=== PATIENT | male | born 1950 | race Caucasian/White ===

== ENCOUNTER 2020-09-21 16:24 | Outpatient (REF) | payer MEDICARE, SELFPAY ==
--- NOTE | 2020-09-21 16:27 | CT_ITS ---
EXAMINATION: CT HEAD WITHOUT CONTRAST CLINICAL INFORMATION: Dysphonia. COMPARISON: Head CT dated 02/23/2018. TECHNIQUE: Contiguous axial imaging was performed from the skull base to vertex without intravenous administration of contrast. This CT examination was performed using dose optimization techniques as appropriate, variously including the following: *Automated exposure control *Adjustment of mA and/or kV according to patient size (this includes techniques or standardized protocols for targeted exams where dose is matched to indication/reason for exam; i.e. extremities or head) *Use of iterative reconstruction technique DLP: 679 mGy-cm FINDINGS: There is no evidence of acute intracranial hemorrhage or territorial infarction. No abnormal mass effect or midline shift is seen. Malcolm to white matter differentiation is well preserved. No extra-axial fluid collections are identified. The ventricles are normal in size. There is no abnormal attenuation within the brain parenchyma. The osseous structures and soft tissues are normal. The mastoid air cells and visualized portions of the paranasal sinuses are well aerated. CT/CT head/brain wo con IMPRESSION: No acute intracranial pathology.
== END 2020-09-21 16:25 | disposition home or self-care (01) ==
LOC: HO.CT 16:24
PROVIDERS: PCP Internal Medicine; Visit Provider Otolaryngology
DX: R51.9 Headache, unspecified (principal)
CPT/HCPCS: 70450

== ENCOUNTER 2021-03-11 07:22 | Outpatient (REF) | payer MEDICARE, SELFPAY ==
[2021-03-11 12:00] LABS: Basophils Percent Auto 0.8 % (0-2); Eosinophils Absolute Auto 0.1 X10*3/uL (0.0-0.4); Eosinophils Percent Auto 1.7 % (0-4); Hemoglobin 13.4 g/dl (14.0-18.0); Imm Gran Abs Auto 0.01 X10*3/uL (0.00-0.03); Imm Gran Pct Auto 0.3 % (0.0-0.4); Lymphocytes Absolute Auto 0.6 X10*3/uL (1.2-4.9); Lymphocytes Percent Auto 16.4 % (20-40); MANUAL DIFF FLAG SCAN; Mean Corpuscular HGB Conc 32.7 g/dl (31.0-36.0); Mean Corpuscular Hemoglobin 31.2 pg (27.0-33.0); Mean Corpuscular Volume 95.6 fL (80-98); Mean Platelet Volume 9.4 fL (9.4-12.4); Monocytes Absolute Auto 0.3 X10*3/uL (0.1-1.2); Monocytes Percent Auto 9.4 % (2-11); Neutrophils Absolute Auto 2.6 X10*3/uL (2.0-8.3); Neutrophils Percent Auto 71.4 % (45-73); Platelet Count 171 X10*3/uL (160-400); Red Blood Count 4.29 X10*6/uL (4.60-5.80); Red Cell Distribution Width 13.2 % (11.0-16.0); SCAN SMEAR FLAG 1; White Blood Count 3.6 X10*3/uL (4.8-10.8)
[2021-03-11 12:18] LABS: Alanine Aminotransferase 17 U/L (0-40); Albumin Level 3.9 g/dL (3.5-5.0); Alkaline Phosphatase 76 U/L (39-117); Anion Gap 10 (12-20); Aspartate Amino Transferase 17 U/L (5-37); Bilirubin Total 0.8 mg/dL (0.0-1.0); Blood Urea Nitrogen 24 mg/dL (9-16); Calcium 8.5 mg/dL (8.4-10.2); Carbon Dioxide 24 mmol/L (22-29); Chloride 103 mmol/L (96-108); Cholesterol 148 mg/dL; Estimated Glomerular Filt Rate > 60; Glucose Fasting 89 mg/dL (60-99); HDL Cholesterol 50 mg/dL; LDL Cholesterol Calculated 81 mg/dl; Potassium 3.8 mmol/L (3.3-5.1); Sodium 133 mmol/L (135-145); Total Protein 6.2 g/dL (6.5-8.0); Triglycerides 88 mg/dL
[2021-03-11 12:42] LABS: PSA,Total (Free>4and<10) 0.26 ng/mL (0.00-4.00)
[2021-03-11 13:02] LABS: SLIDE REVIEW VERIFIED
== END 2021-03-11 07:23 | disposition home or self-care (01) ==
LOC: HO.HMGCLDS 07:22
PROVIDERS: PCP Internal Medicine; Visit Provider Internal Medicine
DX: Z00.00 Encounter for general adult medical examination without abnormal findings (principal); E78.5 Hyperlipidemia, unspecified; Z12.5 Encounter for screening for malignant neoplasm of prostate
CPT/HCPCS: 36415; 80053; 80061; 84153; 85025

== ENCOUNTER 2024-12-01 01:46 | Emergency (ER) | payer MEDICARE, SELFPAY ==
--- NOTE | 2024-12-01 | ECG_ITS ---
Test Reason : FALL Blood Pressure : */* mmHG Vent. 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
--- NOTE | ~2024-12-01 | XR_ITS ---
CLINICAL HISTORY: pain s p fall 3 view right knee Comparison: None Findings: A right knee prosthesis is in place. There is evidence of patellar resurfacing on the lateral image. The surgical hardware appears intact.A comminuted, displaced fracture is present at the distal right femur with extension of the fracture line toward the femoral component of the right knee prosthesis. Large suprapatellar enthesophyte at the site of the quadriceps tendon insertion. Partial visualization of a right hip prosthesis. Small right suprapatellar effusion. IMPRESSION: 1. Comminuted, displaced fracture present at the distal right femur with extension of the fracture line toward the femoral component of the right knee prosthesis. The surgical hardware appears intact. This document has been electronically signed by: Pratik Lima MD on 12/01/2024 04:19:07
--- NOTE | ~2024-12-01 | CT_ITS ---
CLINICAL HISTORY: fall CT cervical spine without contrast Comparison: None Findings: The visualized portions of the bilateral lung apices appear clear. Normal vertebral body alignment. No acute fractures or dislocations. Moderate degenerative endplate changes are present at the cervical spine. Multilevel bilateral degenerative facet arthropathy also present at the cervical spine. Impression: 1. No acute fracture or dislocation injury identified at the cervical spine. This document has been electronically signed by: Pratik Lima MD on 12/01/2024 03:29:53
--- NOTE | ~2024-12-01 | CT_ITS ---
CLINICAL HISTORY: fall CT head without contrast Comparison: CT/REG - CT HEAD/BRAIN WO CON - 09/21/20 16:54 EST Findings: No intracranial mass, midline shift, hydrocephalus, or acute hemorrhage. Visualized paranasal sinuses and mastoid air cells appear clear. No acute skull fracture. Impression: 1. No acute intracranial abnormality. No acute intracranial hemorrhage. This document has been electronically signed by: Pratik Lima MD on 12/01/2024 03:30:27
--- NOTE | ~2024-12-01 | XR_ITS ---
CLINICAL HISTORY: fall, pain 3 view, pelvis and right hip Comparison: None Findings: No acute fracture or dislocation injury identified. Bilateral hip prostheses are in place. The left hip prosthesis is incompletely visualized on this examination. The visualized portions of the surgical hardware appears intact. Gas-filled loops of bowel are identified over the included portion of the abdomen. IMPRESSION: 1. No acute fracture or dislocation injury identified at the bony pelvis or right hip. This document has been electronically signed by: Pratik Lima MD on 12/01/2024 04:18:33
--- NOTE | ~2024-12-01 | XR_ITS ---
CLINICAL HISTORY: cough 1 view chest x-ray. Comparison: None Findings: No consolidation, pneumothorax, or effusion. Heart size normal. Impression: 1. No acute cardiopulmonary process. No focal pulmonary consolidation. This document has been electronically signed by: Pratik Lima MD on 12/01/2024 04:18:36
[2024-12-01 01:50] VITALS: BP 110/64; PULSE 62; O2SAT 96; BMI 28.5
[2024-12-01 01:56] VITALS: BP 115/53; PULSE 57; RESP 17; TEMP 36.6; O2SAT 96
--- NOTE | 2024-12-01 02:07 | ED.FALL ---
HPI - Fall General Chief Complaint: Fall Stated Complaint: FALL/RT KNEE PAIN Time Seen by Provider: 12/01/24 02:07 Source: patient Mode of arrival: EMS Limitations: no limitations History of Present Illness ED Provider: HPI Narrative: Patient has been sick exhausted for last 2 -3 days having diarrhea nausea decrease intake also feel congested had about 6-7 watery stool today and had only 20 oz of got rate went to bathroom stood up felt lightheaded and slipped on the bathroom mat felt his knees gave out complaining of pain in the right knee with swelling no loss of consciousness patient is status post right knee replacement in 2021 at [facility] Related Data Allergies Allergy/AdvReac Type Severity Reaction Status Date / Time Penicillins Allergy Unknown Verified 12/01/24 02:00 Review of Systems Review of Systems: Yes all other systems are reviewed and are negative [facility] Social History Social History Advance Directives: Yes Advance Directives Information Provided: Yes Advance Directives on File: No Do you have a plan to hurt others: No Plan Physical Exam Vital Signs: Vital Signs: Last Vital Signs Temp 97.9 F 12/01/24 01:56 Pulse 57 12/01/24 01:56 Resp 17 12/01/24 01:56 BP 115/53 L 12/01/24 01:56 Pulse Ox 96 12/01/24 01:56 O2 Del Method Room Air 12/01/24 01:56 BMI result Body Mass Index 28.5 Appearance: Alert. Oriented X3. No acute distress. Eyes: PERRLA, No Nystagmus ENT: Pharynx normal. Oral Mucosa moist atraumatic normocephalic in cervical collar superficial flap laceration 2 cm right temporal area Neck: Normal inspection. Neck supple. CVS: Normal heart rate and rhythm. Pulses normal. Respiratory: No respiratory distress. Equal air entry bilateral, no wheezing/rales/rhonchi Abdomen: Soft and nontender. Bowel sounds are present, no mass palpable, no CVA tenderness Skin: Skin warm and dry. Normal skin color. Normal skin turgor. Extremities: No lower extremity edema. No calf tenderness diffuse right knee swelling with effusion LIMITED MOBILITY BECAUSE OF PAIN Neuro: Oriented X 3. No motor deficit. No sensory deficit.No cerebellar signs , cranial nerves II-XII intact Medications Administered Discontinued Medications Generic Name Dose Route Start Last Admin Trade Name Braden PRN Reason Stop Dose Admin Sodium Chloride 1,000 mls @ 999 mls/hr 12/01/24 03:13 12/01/24 05:00 Ns IV 12/01/24 04:13 Infused .Q1H1M ONE Infusion Morphine Sulfate 4 mg 12/01/24 03:13 12/01/24 03:55 Morphine Sulfate 4 Mg/Ml Cartridge IVPUSH 12/01/24 03:14 4 mg ONCE ONE Administration Protocol Ondansetron HCl 4 mg 12/01/24 03:13 12/01/24 03:55 Ondansetron Hcl 4 Mg/2 Ml Vial IVPUSH 12/01/24 03:14 4 mg ONCE ONE Administration Oseltamivir Phosphate 75 mg 12/01/24 03:44 12/01/24 03:55 Oseltamivir Phosphate 75 Mg Capsule PO 12/01/24 03:45 75 mg ONCE ONE Administration Medical Decision Making Medical Decision Making [facility] Narrative: Patient with right femur fracture above the knee prosthesis, after mechanical fall will transfer patient to [facility] with had the surgery by Dr. Santiago in 2021 patient also tested positive for influenza A Patient is accepted by Dr. Jin in the ED [facility] Differential Diagnosis Differential Diagnoses: The differential diagnosis associated with the presentation includes Lab Data [facility] Lab Attestation statement: I reviewed the patient's lab results. 12/01/24 02:28 12/01/24 02:28 Labs: Lab Results 12/01/24 12/01/24 Range/Units 02:22 02:28 WBC 10.0 (4.8-10.8) X10*3/uL RBC 4.35 L (4.60-5.80) X10*6/uL Hgb 14.3 (14.0-18.0) g/dl Hct 40.3 L (42.0-52.0) % MCV 92.6 (80.0-98.0) fL MCH 32.9 (27.0-33.0) pg MCHC 35.5 (31.0-36.0) g/dl RDW 12.8 (11.0-16.0) % Plt Count 162 (160-400) X10*3/uL MPV 8.7 L (9.4-12.4) fL Immature Gran % (Auto) 0.4 (0.0-0.4) % Neut % (Auto) 87.6 H (45-73) % Lymph % (Auto) 4.6 L (20-40) % Glenn % (Auto) 6.4 (2-11) % Eos % (Auto) 0.7 (0-4) % Baso % (Auto) 0.3 (0-2) % Lymph # (Auto) 0.5 L (1.2-4.9) X10*3/uL Glenn # (Auto) 0.6 (0.1-1.2) X10*3/uL Eos # (Auto) 0.1 (0.0-0.4) X10*3/uL Baso # (Auto) 0.0 (0.0-0.2) X10*3/uL Abs Immat Gran (auto) 0.04 H (0.00-0.03) X10*3/uL Absolute Neuts (auto) 8.8 H (2.0-8.3) x10*3/uL Absolute Nucleated RBC 0.000 (0.0-0.012) X10*3/uL Nucleated RBC % (auto) 0.0 (0.0-0.2) /100WBC Sodium 137 (135-145) mmol/L Potassium 3.7 (3.3-5.1) mmol/L Chloride 107 (96-108) mmol/L Carbon Dioxide 20 L (22-29) mmol/L Anion Gap 14 (12-20) BUN 14 (9-16) mg/dL Creatinine 0.98 (0.5-1.4) mg/dL Estim Creat Clear Calc 81.5 Estimated GFR > 60 Random Glucose 140 H (60-115) mg/dL Calcium 8.7 (8.4-10.2) mg/dL Total Bilirubin 0.7 (0.0-1.0) mg/dL AST 24 (5-37) U/L ALT 18 (0-40) U/L Alkaline Phosphatase 70 (39-117) U/L Troponin I High Sens 8.4 (<3.5-35.0) ng/L Total Protein 6.9 (6.5-8.0) g/dL Albumin 3.8 (3.5-5.0) g/dL Influenza Type A (PCR) POSITIVE A (Negative) Influenza Type B (PCR) NEGATIVE (Negative) RSV RNA Qual (PCR) NEGATIVE (Negative) SARS-CoV-2 RNA (RT-PCR) NEGATIVE (Negative) Independent Interpretation I performed an independent interpretation of an: Plain X-Ray and CT Scan Radiology Impression Discussion of test interpretation with radiology: I have reviewed the radiologist's reading. Radiologist Impression: IMPRESSION: 1. Comminuted, displaced fracture present at the distal right femur with extension of the fracture line toward the femoral component of the right knee prosthesis. The surgical hardware appears intact. This document has been electronically signed by: Pratik Lima MD on 12/01/2024 04:19:07 IMPRESSION: 1. No acute fracture or dislocation injury identified at the bony pelvis or right hip. Impression: 1. No acute cardiopulmonary process. No focal pulmonary consolidation Impression: 1. No acute intracranial abnormality. No acute intracranial hemorrhage. Impression: 1. No acute fracture or dislocation injury identified at the cervical spine. Discharge Plan Discharge Clinical Impression: Femur fracture, right, Influenza A Print Language: Malian
[2024-12-01 02:32] LABS: MANUAL DIFF FLAG NO
[2024-12-01 02:35] LABS: Basophils Percent Auto 0.3 % (0-2); Eosinophils Absolute Auto 0.1 X10*3/uL (0.0-0.4); Eosinophils Percent Auto 0.7 % (0-4); Hematocrit 40.3 % (42.0-52.0); Hemoglobin 14.3 g/dl (14.0-18.0); Imm Gran Abs Auto 0.04 X10*3/uL (0.00-0.03); Imm Gran Pct Auto 0.4 % (0.0-0.4); Lymphocytes Absolute Auto 0.5 X10*3/uL (1.2-4.9); Lymphocytes Percent Auto 4.6 % (20-40); Mean Corpuscular HGB Conc 35.5 g/dl (31.0-36.0); Mean Corpuscular Hemoglobin 32.9 pg (27.0-33.0); Mean Corpuscular Volume 92.6 fL (80.0-98.0); Mean Platelet Volume 8.7 fL (9.4-12.4); Monocytes Absolute Auto 0.6 X10*3/uL (0.1-1.2); Monocytes Percent Auto 6.4 % (2-11); Neutrophils Absolute Auto 8.8 x10*3/uL (2.0-8.3); Neutrophils Percent Auto 87.6 % (45-73); Platelet Count 162 X10*3/uL (160-400); Red Blood Count 4.35 X10*6/uL (4.60-5.80); Red Cell Distribution Width 12.8 % (11.0-16.0)
[2024-12-01 02:51] LABS: Troponin-I High Sensitivity 8.4 ng/L (<3.5-35.0)
[2024-12-01 02:52] LABS: Alanine Aminotransferase 18 U/L (0-40); Albumin Level 3.8 g/dL (3.5-5.0); Anion Gap 14 (12-20); Aspartate Amino Transferase 24 U/L (5-37); Bilirubin Total 0.7 mg/dL (0.0-1.0); Blood Urea Nitrogen 14 mg/dL (9-16); Calcium 8.7 mg/dL (8.4-10.2); Carbon Dioxide 20 mmol/L (22-29); Chloride 107 mmol/L (96-108); Creatinine Clr Calc Pharmacy 81.5; Estimated Glomerular Filt Rate > 60; Glucose Random 140 mg/dL (60-115); Potassium 3.7 mmol/L (3.3-5.1); Sodium 137 mmol/L (135-145); Total Protein 6.9 g/dL (6.5-8.0)
[2024-12-01 03:09] LABS: Influenza A PCR POSITIVE (Negative); Influenza B PCR NEGATIVE (Negative); Resp Syncy Virus RNA Qual PCR NEGATIVE (Negative); SARS COV2 PCR INHOUSE NEGATIVE (Negative)
[2024-12-01 03:44] LABS: Alkaline Phosphatase 70 U/L (39-117)
[2024-12-01] MEDS: ondansetron HCL 4 MG/2 ML VIAL IVPUSH (03:55)
[2024-12-01] MEDS: 0.9 % Sodium Chloride 1,000 ML 999 ML IV (03:55)
[2024-12-01] MEDS: Morphine Sulfate 4 MG/ML CARTRIDGE IVPUSH (03:55)
[2024-12-01] MEDS: Oseltamivir Phosphate 75 MG CAPSULE PO (03:55)
[2024-12-01 05:05] VITALS: BP 107/51; PULSE 63; RESP 16; TEMP 36.9; O2SAT 94
--- NOTE | 2024-12-01 05:05 | PC.NURSE ---
pt medicated with pain medication per downtime paperwork. upon reassessment pt pain level 5/10 and states this is tolerable for him.
--- NOTE | 2024-12-01 06:14 | PC.NURSE ---
report given to [place] ARMIJO at [facility] emergency room. awaiting [facility] transfer.
[2024-12-01 07:03] VITALS: BP 107/51; PULSE 63; RESP 16; TEMP 36.9; O2SAT 94
== END 2024-12-01 07:04 | disposition short-term general hospital (02) ==
PROVIDERS: Emergency Provider Internal Medicine
DX: S72.91XA Unspecified fracture of right femur, initial encounter for closed fracture (principal); M79.604 Pain in right leg; J10.1 Influenza due to other identified influenza virus with other respiratory manifestations; M54.2 Cervicalgia; R10.2 Pelvic and perineal pain; R11.2 Nausea with vomiting, unspecified; R51.9 Headache, unspecified; R00.1 Bradycardia, unspecified; W01.0XXA Fall on same level from slipping, tripping and stumbling without subsequent striking against object, initial encounter; Y93.9 Activity, unspecified; Y92.002 Bathroom of unspecified non-institutional (private) residence as the place of occurrence of the external cause; Y99.8 Other external cause status; Z03.818 Encounter for observation for suspected exposure to other biological agents ruled out; Z79.899 Other long term (current) drug therapy
CPT/HCPCS: 0241U; 70450; 71045; 72125; 73502; 73560; 80053; 84484; 85025; 93005; 96361; 96374; 96375; 99285; J2270; J2405

== ENCOUNTER → 2024-12-01 02:09 | Outpatient (BNV) | payer MEDICARE, SELFPAY | PROVIDERS: Emergency Provider Internal Medicine; Visit Provider Radiology Diagnostic Radiology | DX: M25.561 Pain in right knee (principal); R42 Dizziness and giddiness; R05.9 Cough, unspecified; S72.91XA Unspecified fracture of right femur, initial encounter for closed fracture; Z96.643 Presence of artificial hip joint, bilateral | CPT/HCPCS: 70450; 71045; 72125; 73502; 73560 ==

== ENCOUNTER → 2024-12-01 02:18 | Outpatient (BNV) | payer MEDICARE, SELFPAY | PROVIDERS: Emergency Provider Internal Medicine; Visit Provider Internal Medicine Cardiovascular Disease | DX: R00.1 Bradycardia, unspecified (principal) | CPT/HCPCS: 93010 ==

== ENCOUNTER 2025-04-14 10:05 | Outpatient (AMB) | payer MEDICARE, OTHER, SELFPAY ==
--- NOTE | 2025-04-14 10:07 | MHC.PC.OV ---
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 Accompanied by: Self / Same As Patient Allergies Penicillins Allergy (Verified 04/14/25 10:40) Unknown Medication List - Last Reconciled 04/14/25 by Grace Magdaleno PA-C clonazepam 1 mg PO BEDTIME hydrocortisone 100 mg UT QPM losartan 100 mg PO DAILY metoprolol tartrate 50 mg PO BID rosuvastatin 40 mg PO DAILY Tobacco use date assessed: 04/14/25 Fall risk assessment: 1 Fall in past year Last assessed Fall Risk: 04/14/25 Dental Screening Dental Screen Date: 04/14/25 Did you have a dental visit in the last 12 months?: No Did you have a dental problem in the last 6 months where you did not have access to dental care?: No Was dental information given to patient?: Patient has dentist HPI Establish Care HPI Details The patient is a 74-year-old male presenting for the establishment of care with a new primary care provider. The patient has a history of multiple hip and knee surgeries, which have been documented in his medical records. He is currently on medications including rosuvastatin for cholesterol, metoprolol and losartan for blood pressure, and hydrocortisone for radiation proctitis. The patient has been using clonazepam for restless leg syndrome for 15 years, which was initially prescribed by Dr. Gamez. This is a benzodiazepine which does have addictive properties and we are considering alternative treatments such as gabapentin due to patient has not tried any other medications in the past for restless leg syndrome/insomnia. In November 2024, the patient's blood work indicated anemia with hemoglobin and hematocrit levels of 10.1 and 29, respectively. His glucose levels were slightly elevated, and his hemoglobin A1c was 5.6, indicating prediabetes. He reports he had repeat blood work 2 weeks ago and his anemia improved. We do not have those records yet. Patient's records were requested from his prior primary Dr. Gamez. The patient has a history of a heart attack and undergoes regular echocardiograms and stress tests every couple of years. He is unsure if he has a heart murmur although on my exam a heart murmur was heard. The patient is on a 10-year plan for colonoscopy, with the last procedure conducted five to six years ago. He is also under the care of a urologist for prostate cancer management. Social History - Functional status: The patient has undergone multiple joint surgeries, indicating possible limitations in mobility. [facility] Medical History (Updated 04/14/25 @ 12:00 by Grace Magdaleno PA-C) Prediabetes Anemia Radiation proctitis Restless leg syndrome H/O Mohs micrographic surgery for skin cancer (~06/2020) History of myocardial infarction (~2006) History of prostate cancer Hx of fracture of femur Overweight with body mass index (BMI) of 29 to 29.9 in adult Hypercholesteremia Hyperlipidemia Hypertension Establishing care with new doctor, encounter for Surgical History History of total right knee replacement (~01/2022) History of left knee replacement (~06/2022) History of left hip replacement (~2009) History of right hip replacement (~2005) Family History Father Heart attack Prostate cancer Mother No problems noted. Social History Housing: House Alcohol intake: current Alcohol intake frequency: does not drink Patient Tobacco Use Status: Never used Tobacco service: Yes Current occupational status: retired Cognitive needs: Yes (cane) Hearing needs: No Vision needs: Yes (rx glasses) Questionnaire PHQ-9 Over the last 2 weeks, how often have you been bothered by any of the following problems? 1. Little interest or pleasure in doing things: not at all 2. Feeling down, depressed, or hopeless: not at all 3. Trouble falling or staying asleep, or sleeping too much: not at all 4. Feeling tired or having little energy: not at all 5. Poor appetite or overeating: not at all 6. Feeling bad about yourself - or that you are a failure or have let yourself or your family down: not at all 7. Trouble concentrating on things, such as reading the newspaper or watching television: not at all 8. Moving or speaking so slowly that other people could have noticed. Or the opposite - being so fidgety or restless that you have been moving around a lot more than usual: not at all 9. Thoughts that you would be better off or of hurting yourself in some way: not at all Total score: 0 Depression Screening Interpretation: Negative Depression Screening Done: Yes 52438 - PHQ-9 Billing: Yes Source: Developed by Drs. Junior Kidd, Mayte Gutierrez, Dago Butt and colleagues, with an educational chirag from [employer]. Thrive Questionnaire Date Thrive assessed: 04/14/25 I am a: Patient What is your living situation today?: I have a steady place to live Within the past 12 months, did the food you bought not last and you didn't have the money to get more?: Never true Within the past 12 months, did you worry whether your food would run out before you got money to buy more?: Never true Do you have trouble paying for medicines?: No Do you have trouble getting transportation to medical appointments?: No Do you have trouble paying your heating and electricity bill?: No Do you have trouble taking care of your child, family member or friend?: No Do you have trouble with day-to-day activities such as bathing, preparing meals, shopping, managing finances, etc.?: No Are you currently unemployed and looking for a job?: No Are you interested in more education?: No Please select the resources that you would like help with: None Currently or been in a relationship where the following occur: No concerns reported THRIVE Score: 0 AUDIT C Alcohol Use Questionnaire (AUDIT-C) 1. How often do you have a drink containing alcohol?: Never 3. How often do you have six or more drinks on one occasion?: Never Total Score: 0 Score Reviewed/Action Taken: No VANDANA-7 AMB Questionnaire VANDANA-7 Date VANDANA - 7 assessed: 04/14/25 Feeling nervous, anxious, or on edge: 0 = Not at all Not being able to stop or control worryin = Not at all Worrying too much about different things: 0 = Not at all Trouble relaxin = Not at all Being so restless that it is hard to sit still: 0 = Not at all Becoming easily annoyed or irritable: 0 = Not at all Feeling afraid as if something awful might happen: 0 = Not at all Total VANDANA-7 score (0-4 normal; 5-9 mild; 10-14 moderate; 15-21 severe): 0 Source: Developed by Drs. Junior Kidd, Mayte Gutierrez, Dago Butt and colleagues, with an educational chirag from [employer]. VANDANA-7 Assessment Billing VANDANA-7 Assessment Tool: VANDANA-7 Assessment 47694 Review of Systems Const Details: - Cardiovascular: Denies chest pain, reports heart murmur. - Gastrointestinal: Denies black or bloody stools, reports history of radiation proctitis. - Respiratory: Denies shortness of breath. - Neurological: Reports restless leg syndrome. Physical exam (Primary Care) Vital Signs: Last Vital Signs Temp 97.0 F 04/14/25 10:20 Pulse 49 L 04/14/25 10:20 Resp 16 04/14/25 10:20 BP 120/66 04/14/25 10:20 Pulse Ox 98 04/14/25 10:20 Oxygen Delivery Method Room Air 04/14/25 10:20 Care Plan Goal for BP management: <140/90 at Goal BMI result Body Mass Index 29.8 BMI Assessment/Plan discussion: High BMI High, discussed plan: lifestyle, weight reduction, dietary, physical activity and alcohol moderation Tobacco/Smoking Status: Tobacco use Status Tobacco use date assessed 04/14/25 04/14/25 10:18 Patient Tobacco Use Status Never used Tobacco 04/14/25 10:18 PHQ-9: PHQ-9 Score PHQ-9: Total score 0 04/14/25 10:49 Depression Screening Interpretation: Negative Thrive Assessment: Date of Thrive Assessment Date Thrive assessed 04/14/25 04/14/25 10:18 Currently or been in a relationship where the following occur: No concerns reported Const Other: Appearance: Alert. Oriented X3. No acute distress. Head: Normal external exam. Normocephalic. Atraumatic. Eyes: Pupils are equal, round, and reactive to light. Extraocular movements intact. Conjunctiva and sclera normal. Eyelids normal. Ears: External auditory canal normal. Tympanic membranes normal. Throat: Pharynx normal. Uvula midline. Moist mucous membranes. Neck: Normal inspection. Neck supple. Full range of motion. Cardiovascular: Heart rate is low at 49. Normal heart rhythm. Heart sound normal. Heart murmur noted. Pulses normal throughout. Respiratory: No respiratory distress. Painless inspiration. Breath sounds normal. No wheezes/rales/rhonchi noted. Chest nontender. No accessory muscle usage noted or decreased air movement noted. Abdomen: Soft and nontender. Back: No costovertebral angle tenderness. Full range of motion noted. Skin: Skin warm and dry. Normal skin color. Normal skin turgor. No rashes/lesions/lacerations noted. Extremities: No lower extremity edema. Extremities exhibit normal range of motion. Extremities nontender. Neuro: Oriented X 3. Normal steady gait. Results Reviewed Results Reviewed: - Labs: November 2024 blood work showed anemia (Hgb 10.1, Hct 29), elevated glucose, and hemoglobin A1c of 5.6 indicating prediabetes. - Imaging: Regular echocardiograms and stress tests conducted every couple of years due to history of heart attack. Coding Level of Care Code New Pt Level 5 (77712) Complex EM visit Add On G2211 Diagnoses Establishing care with new doctor, encounter for Z76.89 Hypertension I10 Hyperlipidemia E78.5 Hypercholesteremia E78.00 Overweight with body mass index (BMI) of 29 to 29.9 in adult E66.3; Z68.29 Radiation proctitis K62.7 Restless leg syndrome G25.81 Anemia D64.9 Prediabetes R73.03 History of prostate cancer Z85.46 Additional Codes VANDANA-7 Assessment Billing - VANDANA-7 Assessment Tool: VANDANA-7 Assessment 89526 ([id number]) PHQ-9 - 01097 - PHQ-9 Billing: Yes ([id number]) Assessment & Plan Assessment & Plan (1) Establishing care with new doctor, encounter for: Code(s): Z76.89 - Persons encountering health services in other specified circumstances Category: Medical (2) Hypertension: Code(s): I10 - Essential (primary) hypertension Category: Medical Plan: Patient currently on metoprolol 50 mg b.i.d., losartan 100 mg daily, aspirin 81 mg daily, rosuvastatin 40 mg at bedtime. Condition is chronic and stable will continue to monitor. (3) Hyperlipidemia: Code(s): E78.5 - Hyperlipidemia, unspecified Category: Medical Plan: Patient currently on lovastatin 40 mg at bedtime. Condition is chronic and stable will continue to monitor. (4) Hypercholesteremia: Code(s): E78.00 - Pure hypercholesterolemia, unspecified Category: Medical Plan: Patient currently on lovastatin 40 mg at bedtime. Condition is chronic and stable will continue to monitor. (5) Overweight with body mass index (BMI) of 29 to 29.9 in adult: Code(s): E66.3 - Overweight; Z68.29 - Body mass index [BMI] 29.0-29.9, adult Category: Medical Plan: Patient has improved diet and exercise regimen. Condition is chronic and stable will continue to monitor. (6) Radiation proctitis: Code(s): K62.7 - Radiation proctitis Category: Medical Plan: The patient is currently managed with hydrocortisone for radiation proctitis. Patient being followed by urologist at [facility] in [place] Dr. Narayanan. Condition is chronic and stable continue to monitor. (7) Restless leg syndrome: Code(s): G25.81 - Restless legs syndrome Category: Medical Plan: Patient currently on clonazepam 1 mg at bedtime for restless leg syndrome/insomnia. Has never tried any other medications for this. Discussed with patient about titrating dose to a lower dose and eventually switching the patient to another medication such as trazodone to assess if this would work for the patient for restless legs syndrome and insomnia or gabapentin. Will discuss this with Dr. Duran. Condition is chronic will continue to monitor. (8) Anemia: Code(s): D64.9 - Anemia, unspecified Category: Medical Plan: The patient's anemia was noted in November 2024 with a hemoglobin of 10.1 and hematocrit of 29, requiring follow-up to assess current status. (9) Prediabetes: Code(s): R73.03 - Prediabetes Category: Medical Plan: The patient's hemoglobin A1c was 5.6, indicating prediabetes, and requires monitoring and lifestyle modifications. Condition is chronic and stable continue to monitor. (10) History of prostate cancer: Comment: Status post radiation treatment; Periodic radiation proctitis most recent February 2025 Code(s): Z85.46 - Personal history of malignant neoplasm of prostate Category: Medical Plan: The patient is under the care of a urologist for prostate cancer management. Condition is chronic and stable continue to monitor. Plan Plan Patient was informed and verbally consented to the use of an ambient scribe for clinic note documentation during this visit. 1. Radiation Proctitis The patient is currently managed with hydrocortisone for radiation proctitis. 2. Restless Leg Syndrome The patient has been on clonazepam for 15 years for restless leg syndrome, but there is a consideration to switch to gabapentin due to concerns about addiction. 3. Anemia The patient's anemia was noted in November 2024 with a hemoglobin of 10.1 and hematocrit of 29, requiring follow-up to assess current status. 4. Prediabetes The patient's hemoglobin A1c was 5.6, indicating prediabetes, and requires monitoring and lifestyle modifications. 5. Heart Murmur A heart murmur was noted during the examination, and the patient undergoes regular echocardiograms and stress tests due to a history of heart attack. 6. Prostate Cancer The patient is under the care of a urologist for prostate cancer management. During the visit, we discussed the management of restless leg syndrome, considering a switch from clonazepam to gabapentin due to concerns about addiction potential. We also reviewed the patient's blood work from November 2024, noting anemia and prediabetes, and emphasized the importance of monitoring these conditions. The patient was informed about the heart murmur detected during the examination and the need for regular cardiac evaluations due to his history of heart attack. Patient Instructions: - Continue current medications as prescribed. - Follow up with cardiology for regular heart evaluations. - Monitor blood sugar levels and maintain a healthy diet to manage prediabetes. - Discuss with Dr. Jones about potential changes to restless leg syndrome medication.
[2025-04-14 10:20] VITALS: BP 120/66; PULSE 49; RESP 16; TEMP 36.1; O2SAT 98; BMI 29.8
--- OUTSIDE RECORDS SUMMARY | 2025-04-14 10:42 | XMS_ITS | Continuity of Care Document ---
Author Organization [facility], [facility] Address [address] [place] [address] Care Team Providers Care Clinical Researcher Name Role Phone LUCY ARRIAGA Referring Provider LUCY ARRIAGA Primary Care Provider [phone] Assessment Encounter Date Assessment Date Assessment LastModified by Organization Details LastModified Time 04/12/2025 04/12/2025 Assessment: Slight increase in knee ROM this session and good improvement in strength compared to eval. Moderately fatigued with lateral walks this session . Reviewed HEP. Plan: 2x/wk for 8 wks to improve knee ROM, increase quad and hip strength, and improve gait mechanics. [email or web address] Not available 04/12/2025 15:53:10 Plan of Treatment Reminders Order Date Submit Date Provider Last Modified By Organization Details Last Modified Time Details Appointments RECHECK 15 2024 09:30A M Chris Burger MD Not available Not available Not available Lab None recorded . Referral None recorded . Procedures None recorded . Surgeries None recorded . Imaging None recorded . Medication Orders None recorded . Patient TargetsNo targets recorded. Patient InstructionsNo instructions recorded. Reason for Referral None Reported. Problems Name Problem SNOMED Code Status Onset Date Resolution Date Notes Provider Name and Address Organization Details Recorded Time Pain of left knee joint 783113281241 107 Active 2019 Problem Code: M25.562; Problem Code Type: ICD-10; Status: 'A'; Not Available [facility] 4 11:13:00 Pain of right knee joint 585995239499 100 Active 2019 Problem Code: M25.561; Problem Code Type: ICD-10; Status: 'A'; Not Available [facility] 4 11:13:00 Hyperlipi victor hugoia 73427623 Active 2019 Problem Code: E78.5; Problem Code Type: ICD-10; Status: 'A'; Not Available [facility] 4 11:13:00 Idiopathi c osteoarth wilmeris 626833298 Active 2019 Problem Code: M17.0; Problem Code Type: ICD-10; Status: 'A'; Not Available [facility] 4 11:13:01 Problem Notes None recorded. Procedures Surgical History Date Name Laterality Status Provider Name and Address Organization Details Recorded Time 5 09075 Therapeutic Exercise (1:1) completed Inna Alonso, AUTOMOTIVE PAINTER [address] [facility], [place], [address], [facility] 04/12/2025 13:04:52 5 31432 Therapeutic Exercise (1:1) completed Inna Alonso AUTOMOTIVE PAINTER [address], [place], [address], [facility] 04/05/2025 15:27:57 5 34790 Therapeutic Exercise (1:1) completed Kye Reed DPT [address], [place], [address], [facility] 04/05/2025 15:15:20 5 79205 Therapeutic Exercise (1:1) completed Inna Alonso AUTOMOTIVE PAINTER [address], [place], [address], [facility] 03/29/2025 12:06:31 5 94211 Therapeutic Exercise (1:1) completed Inna Alonso AUTOMOTIVE PAINTER [address], [place], [address], [facility] 03/27/2025 13:40:47 5 09358 Therapeutic Exercise (1:1) completed JL HaT [address], [place], [address], [facility] 03/22/2025 12:13:45 5 09711 Therapeutic Exercise (1:1) completed Kye Reed DPT [address], [place], [address], [facility] 03/21/2025 14:53:15 5 60336 Therapeutic Exercise (1:1) completed Inna Alonso, AUTOMOTIVE PAINTER [address], [place], [address], [facility] 03/16/2025 13:30:05 5 51177 Therapeutic Exercise (1:1) completed Inna Alonso, AUTOMOTIVE PAINTER [address], [place], [address], [facility] 03/14/2025 14:09:37 5 20854 Therapeutic Exercise (1:1) completed Kye Reed DPT [address], [place], [address], [facility] 03/07/2025 15:47:45 5 52867 Therapeutic Exercise (1:1) completed Inna Alonso, AUTOMOTIVE PAINTER [address], [place], [address], [facility] 03/06/2025 11:01:39 5 97590 Therapeutic Exercise (1:1) completed Kye Reed DPT [address], [place], [address], [facility] 03/01/2025 08:40:08 5 45967 Therapeutic Exercise (1:1) completed Kye Reed DPT [address], [place], [address], [facility] 02/22/2025 09:29:59 5 23984 Therapeutic Exercise (1:1) completed Kye Zielenski, DPT [address], [place], [address], [facility] 02/21/2025 10:03:02 5 83910 Therapeutic Exercise (1:1) completed Kye Reed, DPT [address], [place], [address], [facility] 02/20/2025 11:19:04 5 19253 Therapeutic Exercise (1:1) completed Kye Reed, DPT [address], [place], [address], [facility] 02/15/2025 08:32:04 5 21808 Therapeutic Exercise (1:1) completed Inna Alonso, AUTOMOTIVE PAINTER [address], [place], [address], [facility] 02/01/2025 12:27:07 5 71168 Therapeutic Exercise (1:1) completed Kye Reed, DPT [address], [place], [address], [facility] 01/30/2025 09:16:28 5 54825: Gait training completed Kye Reed, DPT [address], [place], [address], [facility] 01/30/2025 17:04:03 5 05926 Therapeutic Exercise (1:1) completed Inna Alonso, AUTOMOTIVE PAINTER [address], [place], [address], [facility] 01/26/2025 16:44:20 5 64387 Therapeutic Exercise (1:1) completed Kye Reed, DPT [address], [place], [address], [facility] 01/24/2025 13:24:33 5 50249: Low complexity PT Eval completed Kye Reed, DPT [address], [place], [address], [facility] 01/24/2025 13:24:37 5 G8419 BMI Outside Normal Parameters, F/U not Documented completed Kye Reed, DPT [address], [place], [address], [facility] 01/23/2025 16:38:34 5 G8427 Current Medication Documented completed Kye Reed, DPT [address], [place], [address], [facility] [address] 01/24/2025 13:24:42 replacement of bilateral hip joints completed BRENDA VALENTIN [facility] 01/19/2025 09:40:58 replacement of bilateral knee joints completed BRENDA VALENTIN [facility] 01/19/2025 09:41:11 mohs surgery completed BRENDA VALENTIN [facility] 01/19/2025 09:41:22 open reduction of fracture of femur with internal fixation completed BRENDALEWIS VALENTIN [facility] 01/19/2025 09:41:40 Imaging Results None recorded. Procedure Notes None recorded. Medical Equipment None Reported. Allergies Allergen ID Allergen Name Allergen Category Reaction Reaction Severity Criticality Documentation Date Start Date Code Code System Note Provider Name and Address Organization Details Recorded Time [id number] penicilli n G Not available Not available Not available Not available 01/19/2025 7980 RxNorm BRENDA VALENTIN [facility] [address] 09:42:35 Medications Name Sig Start Date Stop Date Status Note LastModified by Organization Details LastModified Time senna 8.6 mg tablet TAKE 2 TABLETS BY MOUTH 2 TIMES A DAY,X7 DAYS NEEDED FOR CONSTIPAT ION 01/19 completed Not Available Not Available Not Available fluorouraci l 5 % topical cream PLEASE SEE ATTACHED FOR DETAILED DIRECTION S 01/19 completed Not Available Not Available Not Available clonazepam 1 mg tablet TAKE 1 TABLET BY MOUTH EVERYDAY AT BEDTIME active Not Available Not Available No t Available tramadol 50 mg tablet TAKE 1 TABLET BY MOUTH EVERY 6 HOURS,X5 DAYS NEEDED FOR PAIN , SEVERE 01/19 completed Not Available Not Available Not Available doxycycline monohydrate 100 mg capsule TAKE 1 CAPSULE BY MOUTH TWICE A DAY FOR 7 DAYS 01/19 completed Not Available Not Available Not Available Tylenol 500 mg tablet Take 2 tablets every 6 hours by oral route. active Not Available Not Available No t Available pseudoephed rine-guaife nesin ER 80-700 mg tablet,exte nded release 1-2 TABS EVERY 4 HOURS PRN PAIN 12/29 completed Statu s: 'Disc ontin ued'; Not Available Not Available Not Available hydrocortis one 100 mg/60 mL enema INSERT 60 ML IN THE EVENING RECTALLY 1-2 TIMES A WEEK 30 DAYS active Not Available Not Available No t Available metoprolol tartrate 50 mg tablet TAKE 1 TABLET BY MOUTH TWICE A DAY active Not Available Not Available No t Available levofloxaci n 500 mg tablet TAKE 1 TABLET BY MOUTH EVERY DAY FOR 7 DAYS 01/19 completed Not Available Not Available Not Available losartan 100 mg tablet TAKE 1 TABLET BY MOUTH EVERY DAY active Not Available Not Available No t Available enoxaparin 60 mg/0.6 mL subcutaneou s syringe INJECT 0.5 ML SUBCUTANE OUSLY DAILY, FOR 25 DAYS. EXPEL 0.1 ML OF SOLUTION AND INJECT ONLY 0.5ML 01/19 completed Not Available Not Available Not Available rosuvastati n 40 mg tablet TAKE 1 TABLET BY MOUTH EVERY DAY active Not Available Not Available No t Available lactulose 10 gram/15 mL oral solution TAKE 15 ML BY MOUTH 2 TIMES A DAY,X7 DAYS NEEDED FOR CONSTIPAT ION 01/19 completed Not Available Not Available Not Available aspirin 81 mg capsule Take 1 capsule every day by oral route. active Not Available Not Available No t Available Vitals None Recorded Social History None recorded. Functional Status None recorded. Mental Status None recorded. Family History Nothing Reported. Medical History Condition Response Allergies/Hayfever N Coronary Artery Disease N Anxiety/Depression N Breathing or lung disorders N Emphysema N Nerve Disorders N Thyroid Problems N COPD N Pacemaker N Anemia N Kidney/Bladder Problems N Vascular Disease N Heart Trouble Y Heart Attack (NM) Y Gastrointestinal Disease N Cholesterol Y Diabetes N Autoimmune disease N Bleeding Disorder N Inflammatory Joint disease N Orthotics N Arthritis N Seizures/Epilepsy N Blood Clot N AIDS/HIV N Congestive Heart Failure (CHF) N Acid Reflux (GERD) N Cancer Y Stroke N Asthma N Circulation Problems N Peripheral Vascular Disease N Sleep Apnea N Hepatitis N Heart Disease N Rheumatoid Arthritis N Arrhythmia N Pulmonary Embolism N Headaches N Fibromyalgia N Hypertension N Osteoporosis N Past Encounters Encounter ID Performer Location Encounter Start Date Encounter Closed Date Diagnosis/Indication Diagnosis SNOMED-CT Code Diagnosis ICD10 Code Diagnosis Note [id number] Inna Alonso, AUTOMOTIVE PAINTER [facility] [address] [place] [address] 03/14/2025 13:45:55 03/14/2025 15:02:18 Closed fracture of femur 14801068 S72.91XA [id number] Inna Alonso, AUTOMOTIVE [facility]INTER [facility] [place] [address] [place] [address] 03/16/2025 13:21:07 03/16/2025 14:59:15 Closed fracture of femur 04457515 S72.91XA [id number] Kye Reed, DPT [facility] [place] [address] [place] [address] 03/21/2025 12:51:33 03/21/2025 14:53:50 Closed fracture of femur [id number] S72.91XA [id number] Kye Reed, DPT [facility] [place] [address] [place] [address] 03/23/2025 12:57:57 03/23/2025 14:39:44 Closed fracture of femur [id number] S72.91XA [id number] Inna Alonso, AUTOMOTIVE PAINTER [facility] [place] [address] [place] [address] 03/27/2025 12:22:23 03/27/2025 13:53:48 Closed fracture of femur [id number] S72.91XA [id number] Inna Alonso, AUTOMOTIVE PAINTER [facility] [place] [address] [place] [address] 03/29/2025 12:23:49 03/29/2025 13:59:46 Closed fracture of femur [id number] S72.91XA [id number] [facility] Reed[facility] [address] [place] [address] 04/04/2025 15:58:42 04/05/2025 12:41:59 Closed fracture of femur [id number] S72.91XA [id number] Inna Alonso, AUTOMOTIVE [facility] [address] [place] [address] 04/05/2025 15:25:36 04/05/2025 17:43:31 Closed fracture of femur [id number] S72.91XA [id number] Inna Alonso, AUTOMOTIVE [facility] [address] [place] [address] 04/12/2025 12:58:38 04/12/2025 14:59:15 Closed fracture of femur [id number] S72.91XA Health Concerns Section Related Observation LastModified by Organization Detai ls LastModified Time None Recorded Concern Status LastModified by Organization Details LastModified Time None Recorded Payers Encounter Date Sequence Insurance Name Policy Number Policy Gibbs Covered Member ID Gibbs Member ID Guarantor Name 04/12/2025 2 [employer] (MEDICARE SUPPLEMENT) Rohith Mccullough [id number] Rohith Mccullough 04/12/2025 1 MEDICARE B-[place]: [facility] Rohith Mccullough [id number] Rohith Mccullough Notes Date Note Type Note Provider Name and Address Organization Details Recorded Time 04/12/2025 text/html Patient reports he is doing good today. He has been trying to walk about a mile per day at this track near his house. He is walking around the home more frequently without AD. Kye Reed, DPT [address] [facility] [address], [place], [address], [facility] 04/13/2025 08:44:07
== END 2025-04-14 11:19 | disposition home or self-care (01) ==
LOC: HO.HMCSH 10:05
PROVIDERS: PCP Internal Medicine; Visit Provider Physician Assistant Medical
DX: Z76.89 Persons encountering health services in other specified circumstances (principal); I10 Essential (primary) hypertension; E78.5 Hyperlipidemia, unspecified; E78.00 Pure hypercholesterolemia, unspecified; E66.3 Overweight; Z68.29 Body mass index [BMI] 29.0-29.9, adult; K62.7 Radiation proctitis; G25.81 Restless legs syndrome; D64.9 Anemia, unspecified; R73.03 Prediabetes; Z85.46 Personal history of malignant neoplasm of prostate

== ENCOUNTER → 2025-04-14 10:05 | Outpatient (BNVA) | payer MEDICARE, OTHER, SELFPAY | PROVIDERS: PCP Internal Medicine; Visit Provider Physician Assistant Medical | DX: Z76.89 Persons encountering health services in other specified circumstances (principal); I10 Essential (primary) hypertension; E78.5 Hyperlipidemia, unspecified; E78.00 Pure hypercholesterolemia, unspecified; E66.3 Overweight; Z68.29 Body mass index [BMI] 29.0-29.9, adult; K62.7 Radiation proctitis; G25.81 Restless legs syndrome; D64.9 Anemia, unspecified; R73.03 Prediabetes; Z85.46 Personal history of malignant neoplasm of prostate; Z71.3 Dietary counseling and surveillance | CPT/HCPCS: 96127; 99202 ==

== ENCOUNTER 2025-07-11 13:22 | Outpatient (AMB) | payer MEDICARE, OTHER, SELFPAY ==
[2025-07-11 13:20] VITALS: BP 154/84; PULSE 60; RESP 14; TEMP 36.7; O2SAT 98; BMI 29.8
--- NOTE | 2025-07-11 13:20 | A.OFFPC_ITS ---
Vital Signs 07/11/25 13:20 Height 5 ft 11.5 in Weight 217 lb BMI 29.8 BP 154/84 H Respiration 14 Pulse 60 Pulse Source Pulse Oximeter Temp 98.0 F Temp Source Temporal Artery Scan Pulse Oximetry (%) 98 Oxygen Delivery Method Room Air Intake Visit Reasons: 3 month f/u Cost Analyst Required: No Accompanied by: Self / Same As Patient Allergies clams Allergy (Mild, Verified 07/13/25 06:10) Vomiting Penicillins Allergy (Verified 07/13/25 06:10) Unknown Medication List - Last Reconciled 07/13/25 by Santos Duran MD aspirin 81 mg PO DAILY clonazepam (Klonopin) 0.5 mg PO BEDTIME losartan 100 mg PO DAILY metoprolol tartrate 50 mg PO BID rosuvastatin 40 mg PO DAILY Tobacco use date assessed: 04/14/25 Dental Screening Dental Screen Date: 04/14/25 [facility] Medical History (Updated 07/13/25 @ 06:12 by Santos Duran MD) Generalized anxiety disorder Prediabetes Anemia Radiation proctitis Restless leg syndrome H/O Mohs micrographic surgery for skin cancer (~06/2020) History of myocardial infarction (~2006) History of prostate cancer Hx of fracture of femur Overweight with body mass index (BMI) of 29 to 29.9 in adult Hypercholesteremia Hyperlipidemia Hypertension Surgical History History of total right knee replacement (~01/2022) History of left knee replacement (~06/2022) History of left hip replacement (~2009) History of right hip replacement (~2005) Family History Father Heart attack Prostate cancer Mother No problems noted. Social History Housing: House Alcohol intake: current Alcohol intake frequency: does not drink Patient Tobacco Use Status: Never used Tobacco service: Yes Current occupational status: retired Cognitive needs: Yes (cane) Hearing needs: No Vision needs: Yes (rx glasses) Questionnaire PHQ-9 Over the last 2 weeks, how often have you been bothered by any of the following problems? 1. Little interest or pleasure in doing things: not at all 2. Feeling down, depressed, or hopeless: not at all 3. Trouble falling or staying asleep, or sleeping too much: not at all 4. Feeling tired or having little energy: not at all 5. Poor appetite or overeating: not at all 6. Feeling bad about yourself - or that you are a failure or have let yourself or your family down: not at all 7. Trouble concentrating on things, such as reading the newspaper or watching television: not at all 8. Moving or speaking so slowly that other people could have noticed. Or the opposite - being so fidgety or restless that you have been moving around a lot more than usual: not at all 9. Thoughts that you would be better off or of hurting yourself in some way: not at all Total score: 0 Depression Screening Interpretation: Negative Depression Screening Done: Yes 15626 - PHQ-9 Billing: Yes Source: Developed by Drs. Junior Kidd, Mayte Gutierrez, Dago Butt and colleagues, with an educational chirag from [employer]. Thrive Questionnaire Date Thrive assessed: 04/14/25 I am a: Patient What is your living situation today?: I have a steady place to live Within the past 12 months, did the food you bought not last and you didn't have the money to get more?: Never true Within the past 12 months, did you worry whether your food would run out before you got money to buy more?: Never true Do you have trouble paying for medicines?: No Do you have trouble getting transportation to medical appointments?: No Do you have trouble paying your heating and electricity bill?: No Do you have trouble taking care of your child, family member or friend?: No Do you have trouble with day-to-day activities such as bathing, preparing meals, shopping, managing finances, etc.?: No Are you currently unemployed and looking for a job?: No Are you interested in more education?: No Please select the resources that you would like help with: None Currently or been in a relationship where the following occur: No concerns reported THRIVE Score: 0 AUDIT C Alcohol Use Questionnaire (AUDIT-C) 1. How often do you have a drink containing alcohol?: Never 3. How often do you have six or more drinks on one occasion?: Never Total Score: 0 Score Reviewed/Action Taken: No VANDANA-7 AMB Questionnaire VANDANA-7 Date VANDANA - 7 assessed: 04/14/25 Feeling nervous, anxious, or on edge: 0 = Not at all Not being able to stop or control worryin = Not at all Worrying too much about different things: 0 = Not at all Trouble relaxin = Not at all Being so restless that it is hard to sit still: 0 = Not at all Becoming easily annoyed or irritable: 0 = Not at all Feeling afraid as if something awful might happen: 0 = Not at all Total VANDANA-7 score (0-4 normal; 5-9 mild; 10-14 moderate; 15-21 severe): 0 Source: Developed by Drs. Junior Kidd, Mayte Gutierrez, Dago Butt and colleagues, with an educational chirag from [employer]. VANDANA-7 Assessment Billing VANDANA-7 Assessment Tool: VANDANA-7 Assessment 86106 Physical exam (Primary Care) Vital Signs: Last Vital Signs Temp 98.0 F 07/11/25 13:20 Pulse 60 07/11/25 13:20 Resp 14 07/11/25 13:20 BP 154/84 H 07/11/25 13:20 Pulse Ox 98 07/11/25 13:20 Oxygen Delivery Method Room Air 07/11/25 13:20 BMI result Body Mass Index 29.8 Tobacco/Smoking Status: Tobacco use Status Tobacco use date assessed 04/14/25 07/11/25 13:22 Patient Tobacco Use Status Never used Tobacco 07/11/25 13:22 PHQ-9: PHQ-9 Score PHQ-9: Total score 0 07/11/25 13:48 Depression Screening Interpretation: Negative Thrive Assessment: Date of Thrive Assessment Date Thrive assessed 04/14/25 07/11/25 13:22 Currently or been in a relationship where the following occur: No concerns reported Office Procedures Flu Questionnaire Does the patient have a severe egg allergy?: No Does the patient have severe life threatening allergies?: No Does the patient have a fever or illness today?: No Has the patient ever had Guillain-[place] Syndrome?: No Has the patient ever had any past reaction to a flu shot?: No Immunizations Fluarix [id number] (PF) 45 mcg (15 mcg x 3)/0.5 mL IM syringe Performing Provider: Santos Duran MD Performing [facility]: [facility] Documented (not given) by: YOLANDA Morelos on 07/11/25 13:33 Reason Not Given: Received Previously Coding Level of Care Code Est Pt Level 4 (78359) Complex EM visit Add On G2211 Diagnoses Hypertension I10 History of myocardial infarction I25.2 Generalized anxiety disorder F41.1 Additional Codes VANDANA-7 Assessment Billing - VANDANA-7 Assessment Tool: VANDANA-7 Assessment 08219 ([id number]) PHQ-9 - 10083 - PHQ-9 Billing: Yes ([id number]) Assessment & Plan Assessment & Plan (1) Hypertension: Code(s): I10 - Essential (primary) hypertension Category: Medical Plan: History of Present Illness - The patient is a 75-year-old male presenting with concerns regarding long-term clonazepam use for sleep. - The patient has been using clonazepam for approximately 20 years, taking one dose in the morning and one at night to aid sleep. - The patient reports effective sleep with clonazepam but is considering alternatives due to concerns about habit formation. - Alternatives discussed include trazodone and Seroquel, which do not have habit-forming properties. - The patient is on a 10-year colonoscopy plan and has received flu and COVID vaccinations. 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 - The patient denies smoking and reports occasional social alcohol consumption. 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 - Substance use: Denies smoking, reports occasional social alcohol consumption. Review of Systems - General: Denies any current health concerns. - Neurological: Denies pain in the tongue. Physical Exam General: Cooperative and healthy appearing Nutritional Appearance: Well nourished Orientation/consciousness: Patient oriented x3 Limitations: No limitations Head: Normal to inspection General: Appearance normal, both eyes and all related structures Neck: Normal visual inspection Chest: Normal palpation of entire chest wall Respiratory: N ormal respiratory effort Neurology: Patient oriented x3, no pain in the tongue anywhere. Results Plan - Reduce clonazepam dosage to 0.5 mg and monitor sleep quality. - Consider switching to trazodone or Seroquel if clonazepam reduction is ineffective. - Continue with preventative care measures, including colonoscopy and vaccinations. Discussion Notes I discussed with the patient the long-term use of clonazepam and the potential for habit formation. We considered reducing the dosage to 0.5 mg and exploring alternatives such as trazodone or Seroquel, which are not habit-forming. The patient was informed about the importance of continuing preventative care measures, including colonoscopy and vaccinations. Follow-up was planned to assess the effectiveness of the reduced dosage and any potential switch to alternative medications. Patient Instructions - Reduce clonazepam dosage to 0.5 mg and monitor your sleep quality. - Consider alternative medications like trazodone or Seroquel if sleep quality decreases. - Continue with regular preventative care, including colonoscopy and vaccinations. (2) History of myocardial infarction: Onset Date: ~2006 Comment: Status post stents in 2006 Code(s): I25.2 - Old myocardial infarction Category: Medical Plan: Condition is stable. (3) Generalized anxiety disorder: Code(s): F41.1 - Generalized anxiety disorder Category: Medical Plan: Clonazepam dosage has been decreased to 0.5 mg a day Plan Elevated blood pressure noted. Patient was advised to check blood pressures at home before medication dosages will be changed. Orders: Orders Influenza [id number] Immunization 07/11/25 Z23 - Encounter for immunization Medications: New clonazepam (Klonopin) administer 30 minutes before bedtime 0.5 mg PO BEDTIME 30 tabs 0RF Discontinued clonazepam Discontinued Reason: Doctor's Order 1 mg PO DAILY 30 tabs 0RF
--- OUTSIDE RECORDS SUMMARY | 2025-07-11 16:23 | XMS_ITS | Encounter Summary ---
Author Organization [facility] Address [address] [place] [address] [place] [address] Phone Care Team Providers Care Slitting And Shipping Supervisor Name Role Phone Perez Gamez MD Primary Care Provider +1- [phone] Encounter Details Date Type Department Care Team (Late st Contact Info) Description 07/11/2025 Telephone [facility] [address] [place] [address] [address]rd Floor, [address] [place] [address] Mitchel Blum MD [address] [facility], [address] [place] [address] [email or web address] Social History Tobacco Use Types Packs/Day Years Used Date Smoking Tobacco: Never Smokeless Tobacco: Never Alcohol Use Standard Drinks/Week Comments Yes 0 (1 standard drink = 0.6 oz pur e alcohol) 1-2 per month Education Answer Date Recorded Are you interested in more education? Not on sara e 02/13/2023 Are you concerned about learning? Not on file 02/13/2023 No 02/13/2023 No 02/13/2023 Digital Access Answer Date Recorded No 03/16/2023 No 03/16/2023 Reliable internet access at home? Not on file 03/16/2023 Device with a working camera? Not on file Sex and Gender Information Value Date Recorded Sex Assigned at Male 11/15/2017 1:36 PM EST Legal Sex Male 10:00 PM EDT Gender Identity Male 11/15/2017 1:36 PM EST Sexual Orientation Straight 11/15/2017 1: 36 PM EST documented as of this encounter Progress Notes * SergioGuillermina mallory - 07/11/2025 3:22 PM EDT Pt stated that he was ordered to get lipid panel blood work completed prior to 07/27/2025 appt. Based on most recent office notes this appears to be accurate. documented in this encounter Plan of Treatment Upcoming Encounters Date Type Department Care Team (Late st Contact Info) Description 07/27/2025 9:00 AM EDT Office Visit [facility] [address] [place] [address] [address]rd Floor, [address] [place] [address] Mitchel Blum MD [address] [place] [address], [address] [place] [address] [email or web address] documented as of this encounter Visit Diagnoses Not on filedocumented in this encounter Care Teams Slitting And Shipping Supervisor Relationship Specialty Start Date End Date Perez Gamez MD [address] [place] [address] PCP - General 10/22/17 documented as of this encounter Additional Source Comments The information contained in this document represents components of the legal health record. It is not the complete legal health record.[facility]
--- OUTSIDE RECORDS SUMMARY | 2025-07-11 16:23 | XMS_ITS | Encounter Summary ---
Author Organization [facility] Address [address] [place] [address] [place] [address] Phone Care Team Providers Care Piece Dye Worker Name Role Phone Perez Gamez MD Primary Care Provider +1- [phone] Encounter Details Date Type Department Care Team (Late st Contact Info) Description 01/15/2021 Procedure Pass [facility] Endoscopy Admitting Dept Virtual Department [address] [place] [address] Social History Tobacco Use Types Packs/Day Years Used Date Smoking Tobacco: Never Smokeless Tobacco: Never Alcohol Use Standard Drinks/Week Comments Yes 0 (1 standard drink = 0.6 oz pur e alcohol) 1-2 per month Sex and Gender Information Value Date Recorded Sex Assigned at Male 11/15/2017 1:36 PM EST Legal Sex Male 10:00 PM EDT Gender Identity Male 11/15/2017 1:36 PM EST Sexual Orientation Straight 11/15/2017 1: 36 PM EST documented as of this encounter Plan of Treatment Upcoming Encounters Date Type Department Care Team (Late st Contact Info) Description 07/27/2025 9:00 AM EDT Office Visit [facility] [address] [place] [address] [address]rd Floor, [address] [place] [address] Mitchel Blum MD [address] [facility], [address] [address] documented as of this encounter Visit Diagnoses Not on filedocumented in this encounter Additional Health Concerns Infection Onset Date Last Indicated Resolved Time CDiff-Risk 02/23/2025 02/23/2025 02/23/2025 9:42 PM EDT documented as of this encounter Care Teams Piece Dye Worker Relationship Specialty Start Date End Date Perez Gamez MD [address] [place] [address] PCP - General 10/22/17 documented as of this encounter Additional Source Comments The information contained in this document represents components of the legal health record. It is not the complete legal health record.[facility]
--- OUTSIDE RECORDS SUMMARY | 2025-07-11 16:23 | XMS_ITS | Encounter Summary ---
Author Organization [facility] Address [address] [place] [address] Phone Care Team Providers Care Medical Representative Name Role Phone Perez Gamez MD Primary Care Provider +1- [phone] Encounter Details Date Type Department Care Team (Late st Contact Info) Description 07/11/2025 Telephone [facility] [address] [facility] 3rd Floor, [address] [place] [address] Perez Gamez MD [address] [place] [address] Social History Tobacco Use Types Packs/Day Years [...] as of this encounter Progress Notes * Guillermina Hill - 07/11/2025 3:22 PM EDT error documented in this encounter Plan of Treatment Upcoming Encounters Date Type Department Care Team (Late st Contact Info) Description 07/27/2025 9:00 AM EDT Office Visit [facility] [address] [place] [address] [address]rd Floor, [address] [place] [address] Mitchel Blum MD [address] [facility], [address] [address] [email or web address] documented as of this encounter Visit Diagnoses Not on filedocumented in this encounter Care Teams Medical Representative Relationship Specialty Start Date End Date Perez Gamez MD [address] [place] [address] PCP - General 10/22/17 documented as of this encounter Additional Source Comments The information contained in this document represents components of the legal health record. It is not the complete legal health record.[facility]
--- OUTSIDE RECORDS SUMMARY | 2025-07-11 16:23 | XMS_ITS | Encounter Summary ---
Author Organization [facility] Address [address] [facility] [address] [place] [address] Phone Care Team Providers Care Visual Merchandising Manager Name Role Phone Perez Gamez MD Primary Care Provider +1- [phone] Encounter Details Date Type Department Care Team (Latest Contact Info) Description 07/11/2025 Transcribe Orders [facility] [address] [place] [address] [address]rd Floor, [address] [place] [address] Mitchel Blum MD [address] [facility], [address] [place] [address] [email or web address] Mixed hyperlipidemia (Primary Dx) Social History Tobacco Use Types Packs/Day Years [...] Description 07/27/2025 9:00 AM EDT Office Visit [facility] [address] [facility] 3rd Floor, [address] [place] [address] Mitchel Blum MD [address] [facility], [address] [place] [address] [email or web address] Scheduled Orders Name Type Priority Associated Diagnoses Orde r Schedule Lipid panel Lab Routine Mixed hyperlipidemia Expected: 07/11/2025, Expires: 07/11/2026 documented as of this encounter Visit Diagnoses Diagnosis Mixed hyperlipidemia- Primary documented in this encounter Care Teams Visual Merchandising Manager Relationship Specialty Start Date End Date Perez Gamez MD [address] [place] [address] PCP - General 10/22/17 documented as of this encounter Additional Source Comments The information contained in this document represents components of the legal health record. It is not the complete legal health record.[facility]
--- OUTSIDE RECORDS SUMMARY | 2025-07-11 16:23 | XMS_ITS | Clinical Summary ---
Author Organization [facility] Address [address] [address] Phone Care Team Providers Care Sales Representative Jewelry Name Role Phone Perez Arriaga MD Primary Care Provider [phone] Allergies Active Allergy Reactions Criticality Noted Date Comments Clams Fever,Headaches,Nausea and/or Vomiting 07/27/2023 Penicillins Unknown 11/04/2017 Medications aspirin 81 MG EC tablet Take 81 mg by mouth daily. Active clonazePAM (KLONOPIN) 1 MG tablet Take 1 mg by mouth nightly. Active losartan (COZAAR) 100 MG tablet Take 100 mg by mouth daily. Active metoprolol tartrate (LOPRESSOR) 50 MG tabletIndication s:Medication refill TAKE 1 TABLET BY MOUTH TWICE A DAY 180 tablet 3 09/19/2024 Active rosuvastatin (CRESTOR) 40 MG tabletIndication s:Pure hypercholesterol emia, unspecified TAKE 1 TABLET BY MOUTH EVERY DAY 90 tablet 3 01/18/2025 Active Active Problems Problem Noted Date Diagnosed Date Atherosclerosis of [place] co ronary artery without angina pectoris 03/11/2018 Overview (06/22/2018): 07/2007 PCI STEMI BMS RCA EF 40; POST ARREST 05/2018 NUKE - EF 40% Assessment & Plan (02/24/2024 8:24 AM EDT): Continues to be asymptomatic today. Will continue to optimize his cardiac perspective. He will continue aspirin 81 mg daily lifelong, losartan 100 mg daily, Toprol 50 mg twice daily, simvastatin 40 mg daily. Will repeat a lipid panel prior to his next visit. Assessment & Plan (08/26/2022 1:48 PM EST): Denies concerning symptoms today. We will continue to optimize his cardiovascular risk factors. His LDL is just above goal at 71 mg/dL, he will continue rosuvastatin. He is active and does not smoke. Continue 81 mg aspirin indefinitely. Assessment & Plan (09/25/2020 11:42 AM EST): Continuing to do very well. Encouraged to be more active. I suggested he get a larger dog. Assessment & Plan (04/18/2020 9:09 AM EDT): Asymptomatic. Assessment & Plan (10/04/2019 12:16 PM EST): Continues to feel well. Assessment & Plan (03/10/2019 3:30 PM EDT): Doing well. No symptoms. Assessment & Plan (06/23/2018 4:19 PM EDT): Continued to do well. Assessment & Plan (03/12/2018 1:27 PM EDT): Asymptomatic at a moderate level of activity. I've asked him to undergo a surveillance nuclear stress test. His ejection fraction is known to be around 40%. His ECG today reveals a sinus bradycardia 54 with left axis and inferior wall infarct. Essential (primary) hypertension 03/11/2018 Assessment & Plan (02/24/2024 8:24 AM EDT): Blood pressure is well-controlled today 120/74. He will continue Klonopin 1 mg daily, losartan 100 mg daily, metoprolol 50 mg twice daily. He is encouraged follow heart healthy low-sodium and exercise. Assessment & Plan (08/26/2022 1:49 PM EST): Well controlled in office today at 124/62. Continue medications at current doses. Assessment & Plan (09/25/2020 11:42 AM EST): Borderline control today. No changes. Assessment & Plan (04/18/2020 9:09 AM EDT): Controlled on present therapy. No changes. Assessment & Plan (10/04/2019 12:16 PM EST): Well-controlled on present therapy. No changes. Assessment & Plan (03/10/2019 3:31 PM EDT): Controlled on present therapy. No changes Assessment & Plan (06/23/2018 4:19 PM EDT): Controlled on present therapy. No changes. Assessment & Plan (03/12/2018 1:28 PM EDT): Fair control on present therapy. No medication changes. Mixed hyperlipidemia 03/11/2018 Assessment & Plan (02/24/2024 8:24 AM EDT): Most recent lipid panel within limits and he will continue rosuvastatin 40 mg daily. Repeat lipid panel prior to next visit. Assessment & Plan (08/26/2022 1:48 PM EST): See above. Assessment & Plan (09/25/2020 11:42 AM EST): Now back on rosuvastatin at 40 mg. Labs in several months. Assessment & Plan (04/18/2020 9:10 AM EDT): Recent labs include an LDL in the mid 70s and HDL in the mid 40s. Triglycerides were 163. LFTs were okay and renal function is normal. I have asked him to have his lipid profile repeated 2 months after starting what ever medication the insurance company is forcing on him. Assessment & Plan (10/04/2019 12:17 PM EST): Nonfasting profile but LDL is down to 58 and HDL are in the 40s. Triglycerides went up but he was not fasting. No changes. Assessment & Plan (03/10/2019 3:31 PM EDT): Good profile with an LDL in the high 60s, HDL in the 40s and triglyceride of 90. Creatinine is 1 with a BUN of 23 and a potassium of 4.6. Assessment & Plan (06/23/2018 4:19 PM EDT): Recent labs include an LDL of 77 with an HDL of 52 and triglycerides 77. Creatinine is 1.0. Assessment & Plan (03/12/2018 1:27 PM EDT): As above LDL 77. Other parameters are fine. We'll repeat in 6 months. Encounters Date Type Department Care Team Description 07/11/2025 Transcribe Orders [facility] [address], [address] [place], [place] [id number] Mitchel Blum MD Mixed hyperlipidemia (Primary Dx) 07/11/2025 Telephone [facility] [address], [address] [place], [place] [phone] Mitchel Blum MD 07/11/2025 Telephone [facility] [address], [address] [place], [place] [phone] Perez Arriaga MD from Last 3 Months Immunizations Immunization Administration Dates Next Due COVID-19 (Pre-08/10) Pfizer Vaccine, mRNA, PF ,11/24/2020 INFLUENZA, SPLIT VIRUS, TRIVALENT W/ PRESERVATIV E IM 11/15/2011 Influenza High-Dose Quadrivalent Preservative Fr ee IM 06/12/2020 Influenza High-Dose Trivalent Preservative Free IM 07/22/2017 Influenza Trivalent Adjuvanted Preservative free IM 07/15/2018 Influenza, Unspecified Formulation 08/06/2015 Pneumococcal conjugate PCV13 06/12/2020 Family History Medical History Relation Comments Heart attack Father Relation Status Comments Father Social History Tobacco Use Types Packs/Day Years Used Date Smoking Tobacco: Never Smokeless Tobacco: Never Tobacco Cessation:Counseling Given: Not Answered Alcohol Use Standard Drinks/Week Comments Yes 0 [...] Orientation Straight 11/15/2017 1: 36 PM EST Last Filed Vital Signs Vital Sign Reading Time Taken Comments Blood Pressure 138/70 07/27/2024 8:59 AM EDT Pulse 50 07/27/2024 8:59 AM EDT Temperature 36.9 C (98.4 F) 01/15/2021 1:46 PM EDT Respiratory Rate 17 01/15/2021 1:58 PM EDT Oxygen Saturation 97% 07/27/2024 8:59 AM EDT Inhaled Oxygen Concentration - - Weight 96.6 kg (213 lb) 07/27/2024 8:59 AM EDT Height 180.3 cm (5' 10.98 ) 07/27/2024 8:59 AM E DT Body Mass Index 29.72 07/27/2024 8:59 AM EDT Plan of Treatment Upcoming Encounters Date Type Department Care Team (Late st Contact Info) Description 07/27/2025 9:00 AM EDT Office Visit [facility] [address] [place] [address] [address] Floor, [address] [place] [address] Mitchel Blum MD [address] [facility], [address] [place] [id number] Health Maintenance Due Date Last Done Comments Adult Td,Tdap Booster 1950 DEPRESSION SCREENING 1964 HEPATITIS C SCREENING 1970 COLOGUARD 1997 FIT TEST 1997 FOBT 1997 SIGMOIDOSCOPY 1997 VIRTUAL COLONOSCOPY 1997 ZOSTER VACCINES (1 of 2) 2002 BLOOD PRESSURE 01/25/2025 07/27/2024 INFLUENZA VACCINE (#1) 2025 , 07/15/2018, 07/22/2017, Additional history exists PNEUMOCOCCAL VACCINES (50+ years) (3 of 3 - PCV20 or PCV21) 06/12/2025 06/12/2020, 07/26/2007 COVID-19 VACCINE (3 - season) 2025 12/15/2020, 11/24/2020 CREATININE LEVEL 02/25/2026 02/25/2025, 05/2025, 02/08/2024, Additional history exists POTASSIUM LEVEL 02/25/2026 02/25/2025, 05/05/2025, 02/08/2024, Additional history exists RSV VACCINE (1 - 1-dose 75+ series) 2027 COLONOSCOPY 01/15/2031 01/15/2021 COLORECTAL CANCER SCREENING 01/15/2031 SMOKING STATUS SCREENING (Once After 26 Yrs) Completed 07/27/2024 HEPATITIS A VACCINES Aged Out No long er eligible based on patient's age to complete this topic HIB VACCINES Aged Out No longer eligi ble based on patient's age to complete this topic MENINGOCOCCAL VACCINES (ACWY) Aged Out No longer eligible based on patient's age to complete this topic MENINGOCOCCAL VACCINES (B) Aged Out N o longer eligible based on patient's age to complete this topic Medical Devices Implanted Type Area Sand Filler Device Identifier Shelf Expiration Date Model / Serial / Lot Bilat Hip Hardware Procedures Procedure Name Priority Date/Time Associated Diagnosis Comments COMPREHENSIVE METABOLIC PANEL Routine 02/25/2025 11:01 AM EDT Diarrhea, unspecified type ENDOSCOPY, COLON 01/15/2021 1:23 PM EDT from Last 3 Months or Most Recently Relevant to Health Maintenance Results * (ABNORMAL) Comprehensive metabolic panel (02/25/2025 11:01 AM EDT) SODIUM 137 133 - 146 mmol/L [facility] POTASSIUM 3.5 3.3 - 5.1 mmol/L [facility] CHLORIDE 100 96 - 108 mmol/L [facility] CO2 25 21 - 35 mmol/L [facility] BUN 25(H) 6 - 19 mg/dL [facility] CREATININE 1.30 0.5 - 1.5 mg/dL [facility] GLUCOSE 90 70 - 99 mg/dL [facility] ALBUMIN 3.8(L) 3.9 - 4.8 g/dL [facility] TOTAL PROTEIN 6.9 6.5 - 8.0 g/dL [facility] CALCIUM 9.1 8.4 - 10.3 mg/dL [facility] ALKALINE PHOSPHATASE 98 39 - 117 U/L [facility] TOTAL BILIRUBIN 0.6 0.0 - 1.2 mg/dL [facility] AST 15 0 - 37 U/L [facility] ALT 7 0 - 40 U/L [facility] GLOBULIN 3.1 1 - 4.8 g/dL [facility] EGFR 58(L) >59 mL/min/1.7 3m2 [facility] Comment:Estimated glomerular filtration rate calculated using the CKD-EPI refit equation. ANION GAP 16 10 - 20 mmol/L [facility] Blood 02/25/2025 11:0 1 AM EDT 02/25/2025 11:05 AM EDT us Madyson Spangler [facility] LAB BLOOD ORDERABLES Final Result [facility] [address] [place] [address] * ENDOSCOPY, COLON (01/15/2021 1:23 PM EDT) Narrative Transcriptions Chuy Gimenez MD - 01/15/2021 1:23 PM EDT Patient Name: Rohith Mccullough Attending MD:: CHUY GIMENEZ MD, Procedure Date: 01/15/2021 1:23 PM Date of : 1950 Age: 70 Admit Type: Outpatient Gender: Male Room: [place] [address] Referring MD: PEREZ ARRIAGA MD Exam Type: Colonoscopy Indications: Hematochezia Medications: Monitored Anesthesia Care Procedure: Informed consent was obtained from the patient after discussion of the indications, limitations, alternatives, benefits, and risks of the procedure. Risks specifically discussed include but are not limited to medication reactions, missed lesions, bleeding, perforation, or the need for emergentsurgery. Throughout the procedure, the patient's bloodpressure, pulse, end-tidal CO2, and oxygen saturations were monitored continuously. The Olympus adult variable colonoscope [id number] #3was introduced through the anus and advanced to thececum, identified by appendiceal orifice and ileocecalvalve. The colonoscopy was performed without difficulty.The patient tolerated the procedure well. The quality of the bowel preparation was excellent. The quality ofthe bowel preparation was evaluated using the BBPS([place] Bowel Preparation Scale) with scores of: Right Colon= 3, Transverse Colon = 3 and Left Colon = 3 (entire mucosa seen well with no residual staining, small fragments of stool or opaque liquid). The total BBPS score equals 9. Complications: No immediate complications. Estimated blood loss:None. Findings: The perianal and digital rectal examinations were normal. Localized mild inflammation characterized byerythema was found in the rectum. Internal hemorrhoids were found during retroflexion. The hemorrhoids were moderate. The exam was otherwise normal throughout theexamined colon. 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 Likely source of rectal bleeding. If persistent bleeding, return for flex sig when active bleeding. - Internal hemorrhoids. - No specimens collected. Recommendation: - Discharge patient to home. - Repeat colonoscopy in 10 years for screeningpurposes. CHUY GIMENEZ MD, 01/15/2021 1:44:44 PM This report has been signed electronically. Number of Addenda: 0 Note Initiated On: 01/15/2021 1:23 PM Procedure Code(s): --- Professional --- 82976, Colonoscopy, flexible; diagnostic, including collection of specimen(s) by brushing or washing, when performed (separateprocedure) --- Technical --- 48538, Colonoscopy, flexible; diagnostic, including collection of specimen(s) by brushing or washing, when performed (separateprocedure) Diagnosis Code(s): --- Professional --- K62.7, Radiation proctitis K64.8, Other hemorrhoids K92.1, Melena (includes Hematochezia) --- Technical --- K62.7, Radiation proctitis K64.8, Other hemorrhoids K92.1, Melena (includes Hematochezia) CPT copyright 2018 [employer]. All rights reserved. The codes documented in this report are preliminary and upon electrolysist reviewmay be revised to meet current compliance requirements. Procedure Date: 01/15/2021 1:23:[address] [place] [id number] Perez Arriaga MD GI PROCEDURE ORDERABLES Fi nal Result from Last 3 Months or Most Recently Relevant to Health Maintenance Insurance MEDICARE PART A & B [employer] MEDICARE SUPPLEMENT MEDICARE PART A & B [employer] MEDICARE SUPPLEMENT MEDICARE PART A & B MEDICARE PART A & B MEDICARE PART A & B [employer] MEDICARE SUPPLEMENT MEDICARE PART A & B MEDICARE PART A & B [employer] MEDICARE SUPPLEMENT MEDICARE PART A & B [facility] MEDICARE SUPPLEMENT MEDICARE PART A & B [employer] MEDICARE SUPPLEMENT Care Teams Sales Representative Jewelry Relationship Specialty Start Date End Date Perez Arriaga MD [address] [place] [id number] PCP - General 10/22/17 Additional Source Comments The information contained in this document represents components of the legal health record. It is not the complete legal health record.[facility]
== END 2025-07-11 13:48 | disposition home or self-care (01) ==
LOC: HO.HMCSH 13:22
PROVIDERS: PCP Internal Medicine; Visit Provider Internal Medicine
DX: Z23 Encounter for immunization (principal)

== ENCOUNTER → 2025-07-11 13:22 | Outpatient (BNVA) | payer MEDICARE, OTHER, SELFPAY | PROVIDERS: PCP Internal Medicine; Visit Provider Internal Medicine | DX: I10 Essential (primary) hypertension (principal); I25.2 Old myocardial infarction; F41.1 Generalized anxiety disorder | CPT/HCPCS: 90471; 96127; 99212 ==